=== PATIENT | male | born 1955 | race African-American/Black ===

== ENCOUNTER → 2017-06-15 | Outpatient (CLI) | payer BC ==
--- NOTE | 2017-06-16 07:44 | XCELERA REPORT ---
[address] [address] Lower Extremity Venous Evaluation Name: TETE SORIANO Age: 62 yrs Gender: Male : 1955 Patient Status: Outpatient Patient Location: Study Date: 06/15/2017 06:32 PM Procedure: Color flow and duplex imaging of the veins of the right lower extremity as well as the left Common Femoral vein. Reason For Study: SWELLING RLE Ordering Physician: AYAN ESPINOZA Performed By: Brittanie Kiran Right Sided Venous Evaluation Normal vessel filling wall to wall, compression and augmentation as well as Colour flow down to the infrageniculate veins. Left Sided Venous Evaluation The left common femoral vein is fully compressible. Spontaneous and phasic flow is present in the left common femoral vein. Interpretation Summary No duplex evidence of DVT or obstruction in the right lower extremity nor in the left Common Femoral vein. : AYAN ESPINOZA > Scottie Gilmore
== END ==
LOC: SP 18:01
PROVIDERS: ATTEND Internal Medicine
DX: R22.41 Localized swelling, mass and lump, right lower limb (principal)
CPT/HCPCS: 93971

== ENCOUNTER → 2017-09-11 | Outpatient (CLI) | payer BC ==
--- NOTE | 2017-09-11 16:37 | RADIOLOGY REPORT (SQ) ---
EXAM DESCRIPTION: BONE SURVEY COMPLETE COMPLETED DATE/TIME: 09/11/2017 4:19 pm REASON FOR STUDY: PAIN IN LEFT LEG M79.605 PAIN IN LEFT LEG COMPARISON: None. TECHNIQUE: Images of the axial and proximal appendicular skeleton are obtained, along with lateral s kull and frontal chest films. LIMITATIONS: None. FINDINGS: AP CHEST: No bony findings. Lungs are clear. LATERAL SKULL: No worrisome bone lesions. AP BOTH HUMERI: No worrisome bone lesions. TWO-VIEW LUMBAR SPINE: No worrisome bone lesions. TWO-VIEW THORACIC SPINE: No worrisome bone lesions. TWO VIEW CERVICAL SPINE: AP PELVIS: No worrisome bone lesions. AP BOTH FEMURS: No worrisome bone lesions. OTHER: Diffuse bilateral atherosclerotic arterial vascular calcifications in the lower extremities. IMPRESSION: NO WORRISOME BONE LESIONS. TECHNICAL DOCUMENTATION: JOB ID: [id number] [employer]- All Rights Reserved
== END ==
LOC: RAD 15:46
PROVIDERS: ATTEND Internal Medicine
DX: I70.202 Unspecified atherosclerosis of native arteries of extremities, left leg (principal); M79.605 Pain in left leg
CPT/HCPCS: 77075

== ENCOUNTER → 2017-10-26 | Outpatient (CLI) | payer BC ==
--- NOTE | 2017-10-26 11:02 | XCELERA REPORT ---
[address] [address] Lower Extremity Arterial Evaluation Name: TETE SORIANO Age: 62 yrs Gender: Male : 1955 Patient Status: Outpatient Patient Location: Study Date: 10/26/2017 09:02 AM Procedure: A color flow and duplex scan of the lower extremity arteries was performed bilaterally with velocity and waveform anaylsis. Ankle brachial indicies performed. Reason For Study: PVD Ordering Physician: AYAN ESPINOZA Performed By: Elizabeth Vaughn Measurements and Calculations Right Left DIRECTOR HOME HEALTH PSV 115.7 87.4 cm/sec Prox PFA PSV -124.5 -123.8 cm/sec Prox SFA PSV -107.1 -88.6 cm/sec Mid SFA PSV -146.1 -225.6 cm/sec Dist SFA PSV -91.8 -81.2 cm/sec Prox Pop A PSV 50.0 36.8 cm/sec Dist RIMA PSV 23.0 20.4 cm/sec Prox TANKERMAN PSV 24.2 cm/sec Mid TANKERMAN PSV 68.5 18.1 cm/sec Dist TANKERMAN PSV 39.7 31.2 cm/sec Dist Jennifer A PSV 100.4 66.3 cm/sec Bry Pedis PSV 30.8 27.7 cm/sec Right Side Arterial Evaluation Normal velocity and triphasic waveforms noted from the Common Femoral artery to the Popliteal artery. Biphasic in the infrageniculate vessels. 20-49 % stenosis at the infrageniculate level. Ankle Brachial index is 0.7. Left Side Arterial Evaluation Normal velocity and triphasic waveforms noted from the Common Femoral artery to the Popliteal artery. Monophasic in the infrageniculate vessels. 50-99 % stenosis at the infrageniculate level. Ankle Brachial index is 0.7. Interpretation Summary Moderate hemodynamically significant lesions in the right lower extremity only, on duplex imaging, at rest. Severe hemodynamically significant lesions in the left lower extremity only, on duplex imaging, at rest. : AYAN ESPINOZA > Scottie Gilmore
== END ==
LOC: SP 08:53
PROVIDERS: ATTEND Internal Medicine
DX: I73.9 Peripheral vascular disease, unspecified (principal)
CPT/HCPCS: 93925